=== PATIENT | male | born 1965 | race African-American/Black ===

== ENCOUNTER 2017-06-12 10:55 | Inpatient (IN) | payer OTHER ==
[2017-06-12 11:37] VITALS: BMI 30.4
--- NOTE | 2017-06-12 13:59 | HP ---
Admission [facility] Chief Complaint: I AM HERE FOR REHAB FROM HEROIN Allergies/Adverse Reactions: Allergies Allergy/AdvReac Type Severity Reaction Status Date / Time No Known Allergies Allergy Verified 06/12/17 13:51 History of Present Illness: THIS 51 YEARS OLD MALE WITH HEROIN DEPENDENCE,SEEKING RE[facility],LAST TREATMENT [facility] 02/16,SUICASA 4 MONTHS AGO, METHADONE MAINTENANCE 120 MGS/DAY,LAST MEDICATE 06/04/17 TYPE 2 DM HYPERTENSION DEPRESSION NICOTINE DEPENDENCE LONGEST PERIOD OF SOBRIETY 14 YEARS Exam Limitations: No Limitations - Ebola screening Have you traveled outside of the country in the last 21 days: No (N) Have you had contact with anyone from an Ebola affected area: No Have you been sick,other than usual withdrawal symptoms: No Do you have a fever: No - Review of Systems Constitutional: No Symptoms Reported EENT: reports: No Symptoms Reported Respiratory: reports: No Symptoms reported Cardiac: reports: No Symptoms Reported GI: reports: No Symptoms Reported : reports: No Symptoms Reported Musculoskeletal: reports: No Symptoms Reported (FX OF RIGHT WRIST AND TENDON INJURY RIGHT HAND 2 AND A HALF WEEKS AGO) Integumentary: reports: No Symptoms Reported Neuro: reports: No Symptoms reported Endocrine: reports: No Symptoms Reported Hematology: reports: No Symptoms Reported Psychiatric: reports: No Sypmtoms Reported, Judgement Intact, Mood/Affect Appropiate, Anxious, Depressed Patient History - Patient Medical History Hx Anemia: No Hx Asthma: No Hx Chronic Obstructive Pulmonary Disease (COPD): No Hx Cancer: No Hx Cardiac Disorders: No Hx Congestive Heart Failure: No Hx Hypertension: Yes (ON MED) Hx Hypercholesterolemia: No Hx Pacemaker: No HX Cerebrovascular Accident: No Hx Seizures: No Hx Dementia: No Hx Diabetes: Yes (TYPE 2 DM) Hx Gastrointestinal Disorders: No Hx Liver Disease: No Hx Genitourinary Disorders: No Hx Sexually Transmitted Disorders: No Hx Renal Disease (ESRD): No Hx Thyroid Disease: No Hx Human Immunodeficiency Virus (HIV): No (LAST 01/17 NEGATIVE) Hx Hepatitis C: No Hx Depression: Yes (ANXIETY) Hx Suicide Attempt: No Hx Bipolar Disorder: No Hx Schizophrenia: No Other Medical History: NO SUICIDAL,NO HOMICIDAL - Patient Surgical History Past Surgical History: No - PPD History Previous Implant?: Yes Documented Results: Negative w/o proof PPD to be Administered?: Yes - Smoking Cessation Smoking history: Current every day smoker Have you smoked in the past 12 months: Yes Aproximately how many cigarettes per day: 20 Cigars Per Day: 0 Hx Chewing Tobacco Use: No Initiated information on smoking cessation: Yes 'Breaking Loose' booklet given: 06/12/17 - Substance & Tx. History Hx Alcohol Use: No Hx Substance Use: Yes Substance Use Type: Heroin Hx Substance Use Treatment: Yes ([facility] IN 02/16) - Substances Abused Heroin Route: Inhalation Frequency: Daily Amount used: 6 bags Age of first use: 26 Date of Last Use: 06/12/17 Family Disease History - Family Disease History Family History: Denies Admission Physical Exam [facility] - Vital Signs Vital Signs: Vital Signs - 24 hr 06/12/17 11:36 Temperature 96.2 F L Pulse Rate 81 Respiratory 18 Rate Blood Pressure 145/93 - Physical General Appearance: Yes: Within Normal Limits HEENTM: Yes: Within Normal Limits, Normal ENT Inspection, KAREN, Pharynx Normal Respiratory: Yes: Lungs Clear, Normal Breath Sounds, No Respiratory Distress Neck: Yes: Within Normal Limits Breast: Yes: Within Normal Limits Cardiology: Yes: Within Normal Limits, Regular Rhythm, Regular Rate, S1, S2 Abdominal: Yes: Within Normal Limits, Normal Bowel Sounds, Non Tender, Soft Genitourinary: Yes: Within Normal Limits Back: Yes: Within Normal Limits Musculoskeletal: Yes: Muscle Pain Extremities: Yes: Other (FX OF RIGHT WRIST AND SPRAIN OF TENDON OF RIGHT 5TH FINGER) Neurological: Yes: 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 NML intact, Fully Oriented, Alert, Motor Strength 5/5, Normal Mood/Affect Integumentary: Yes: Within Normal Limits Lymphatic: Yes: Within Normal Limits - Diagnostic (1) Heroin dependence Current Visit: Yes Status: Acute (2) Methadone maintenance therapy patient Current Visit: Yes Status: Acute (3) Essential hypertension Current Visit: Yes Status: Acute (4) DM2 (diabetes mellitus, type 2) Current Visit: Yes Status: Acute (5) Anxiety and depression Current Visit: Yes Status: Acute Cleared for Admission [facility] - Detox or Rehab Claeared for Rehab Admission: Yes [facility] Breath Alcohol Content Breath Alcohol Content: 0 Urine Drug Screen - Results Drug Screen Negative: No Urine Drug Screen Results: ANTON-Cocaine, OPI-Opiates, PCP-Phencyclidine, MTD- Methadone Inpatient Rehab Admission - Initial Determination Are CD services needed?: Yes Free of communicable disease: Yes Not in need of hospitalization: Yes - Rehab Admission Criteria Previous failed treatment: Yes Poor recovery environment: Yes Comorbidities: Yes Patient is meeting Inpatient Rehab admission criteria:: Yes
[2017-06-12] MEDS ORDERED: MAGNESIUM CITRATE 300 ML BOTTLE PO PRN (14:17)
[2017-06-12] MEDS ORDERED: LOPERAMIDE HCL 2 MG CAPSULE PO PRN (14:17)
[2017-06-12] MEDS ORDERED: IBUPROFEN 400 MG TABLET (FP) PO PRN (14:17)
[2017-06-12] MEDS ORDERED: MENTHOL/PHENOL 1 EACH UD MM PRN (14:17)
[2017-06-12] MEDS ORDERED: guaiFENesin/D-METHORPHAN HB 10 ML UNIT-DOSE CUPS PO PRN (14:17)
[2017-06-12] MEDS ORDERED: MAG HYDROX/AL HYDROX/SIMETH 30 ML UNIT-DOSE CUP PO PRN (14:17)
[2017-06-12] MEDS ORDERED: ACETAMINOPHEN 325 MG TABLET (FP) PO PRN (14:17)
[2017-06-12] MEDS ORDERED: hydrOXYzine PAMOATE 50 MG CAPSULE (FP) PO PRN (14:17)
[2017-06-12] MEDS ORDERED: MAGNESIUM HYDROX 2400MG/30ML ORAL SUSPENSION 30 ML CUP PO PRN (14:17)
[2017-06-12] MEDS ORDERED: METHADONE HCL 40 MG DISPERSABLE TABLET PO ONE ×2 (14:36→17:45)
[2017-06-12] MEDS: metFORMIN HCL 500 MG TABLET (FP) PO SCH (17:14)
[2017-06-12] MEDS: LISINOPRIL 10 MG TABLET (FP) PO SCH (17:14)
[2017-06-12] MEDS: NICOTINE 21 MG/24 HOURS TOPICAL PATCH TD SCH (17:15)
[2017-06-12 19:09] LABS: MCH 30.2 pg (25.7-33.7); MCHC 34.5 g/dl (32.0-35.9); MEAN CELL VOLUME 87.7 fl (80-96); PLATELET COUNT 265 K/MM3 (134-434); RDW 12.9 % (11.9-15.9); WHITE BLOOD COUNT 9.2 K/mm3 (4.0-10.0)
[2017-06-12 19:52] LABS: URINE APPEARANCE SLCLOUDY; URINE BILIRUBIN NEGATIVE (NEGATIVE); URINE BLOOD NEGATIVE (NEGATIVE); URINE COLOR YELLOW; URINE GLUCOSE (UA) 3+ (NEGATIVE); URINE KETONE NEGATIVE (NEGATIVE); URINE NITRITE NEGATIVE (NEGATIVE); URINE PROTEIN NEGATIVE (NEGATIVE); URINE UROBILINOGEN NEGATIVE mg/dL (0.2-1.0)
[2017-06-12 20:29] LABS: ALBUMIN 3.4 g/dl (3.4-5.0); ANION GAP 8 (8-16); CALCIUM 8.7 mg/dL (8.5-10.1); CO2 24 mmol/L (21-32); GLUCOSE,RANDOM 248 mg/dL (74-106); SGPT/ALT 18 U/L (12-78)
[2017-06-12 20:32] LABS: ALK PHOS 124 U/L (45-117); BILIRUBIN,TOTAL 0.3 mg/dL (0.2-1.0); CREATININE 1.1 mg/dL (0.7-1.3); SGOT/AST 9 U/L (15-37); TOT PROT 6.6 g/dl (6.4-8.2)
[2017-06-12 21:38] LABS: URINE LEUK ESTERASE Negative (NEGATIVE)
[2017-06-12] MEDS: THIAMINE HCL 100 MG TABLET (FP) PO SCH (21:46)
--- NOTE | 2017-06-12 23:47 | PN ---
[facility] Progress Note Note: received nurse call that the patient need ppd
[2017-06-13] MEDS ORDERED: METHADONE HCL 10 MG TABLET PO ONE (06:00)
[2017-06-13] MEDS ORDERED: METHADONE 40 MG, METHADONE 10 MG PO ONE (06:00)
[2017-06-13] MEDS ORDERED: METHADONE HCL 10 MG TABLET ONE (06:18)
[2017-06-13] MEDS ORDERED: METHADONE HCL 40 MG DISPERSABLE TABLET ONE (06:18)
[2017-06-13] MEDS: metFORMIN HCL 500 MG TABLET (FP) PO SCH ×2 (06:41→16:59)
[2017-06-13] MEDS ORDERED: TUBERCULIN PPD 5 TU/0.1ML VIAL ID ONE (06:43)
[2017-06-13] MEDS: PRENATAL VITAMINS W/ FOLIC ACID TABLET (FP) PO SCH (10:15)
[2017-06-13] MEDS: LISINOPRIL 10 MG TABLET (FP) PO SCH (10:15)
[2017-06-13] MEDS: NICOTINE 21 MG/24 HOURS TOPICAL PATCH TD SCH (10:29)
[2017-06-13] MEDS ORDERED: FLU VACCINE QUAD 60 MCG/0.5 ML (MDV 17-18) IM ONE (12:00)
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
[2017-06-13] MEDS: THIAMINE HCL 100 MG TABLET (FP) PO SCH (21:31)
[2017-06-13] MEDS: P-EPHED 60MG/TRIPROLIDI 2.5MG TABLET PO PRN (21:32)
[2017-06-14] MEDS ORDERED: METHADONE 40 MG, METHADONE 20 MG PO ONE (06:00)
[2017-06-14] MEDS ORDERED: METHADONE HCL 10 MG TABLET PO SCH (06:00)
[2017-06-14] MEDS ORDERED: METHADONE HCL 10 MG TABLET PO ONE (06:00)
[2017-06-14] MEDS ORDERED: METHADONE HCL 10 MG TABLET ONE (06:14)
[2017-06-14] MEDS ORDERED: METHADONE HCL 40 MG DISPERSABLE TABLET ONE (06:15)
[2017-06-14] MEDS: metFORMIN HCL 500 MG TABLET (FP) PO SCH ×2 (06:36→16:35)
[2017-06-14] MEDS ORDERED: PT OWN MED DRAWER 7, Y5N ONE (08:58)
[2017-06-14] MEDS: LISINOPRIL 10 MG TABLET (FP) PO SCH (10:09)
[2017-06-14] MEDS: PRENATAL VITAMINS W/ FOLIC ACID TABLET (FP) PO SCH (10:09)
[2017-06-14] MEDS: buPROPion HCL 75 MG TABLET PO SCH (10:09)
[2017-06-14] MEDS: NICOTINE 21 MG/24 HOURS TOPICAL PATCH TD SCH (10:09)
--- NOTE | 2017-06-14 15:41 | EKG ---
Test Reason : Blood Pressure : / mmHG Vent. Rate : 070 BPM Atrial Rate : 070 BPM P-R Int : 136 ms QRS Dur : 076 ms QT Int : 404 ms P-R-T Axes : 063 -42 011 degrees QTc Int : 436 ms NORMAL SINUS RHYTHM LEFT AXIS DEVIATION ABNORMAL ECG NO PREVIOUS ECGS AVAILABLE REPEAT EKG IF CLINICALLY INDICATED Confirmed by REBECCA HEARN MD ([id number]) on 06/14/2017 3:41:14 PM Referred By: DILCIA OSWALD Confirmed By:REBECCA HEARN MD
[2017-06-14] MEDS: THIAMINE HCL 100 MG TABLET (FP) PO SCH (21:42)
[2017-06-15] MEDS ORDERED: METHADONE HCL 10 MG TABLET ONE (05:40)
[2017-06-15] MEDS ORDERED: METHADONE HCL 40 MG DISPERSABLE TABLET ONE (05:40)
[2017-06-15] MEDS ORDERED: METHADONE 40 MG, METHADONE 30 MG PO ONE (06:00)
[2017-06-15] MEDS ORDERED: METHADONE HCL 10 MG TABLET PO ONE (06:00)
[2017-06-15] MEDS: metFORMIN HCL 500 MG TABLET (FP) PO SCH ×2 (06:08→16:41)
[2017-06-15] MEDS: PRENATAL VITAMINS W/ FOLIC ACID TABLET (FP) PO SCH (09:51)
[2017-06-15] MEDS: buPROPion HCL 75 MG TABLET PO SCH (09:52)
[2017-06-15] MEDS: NICOTINE 21 MG/24 HOURS TOPICAL PATCH TD SCH (09:52)
[2017-06-15] MEDS: LISINOPRIL 10 MG TABLET (FP) PO SCH (09:52)
[2017-06-15] MEDS: NICOTINE POLACRILEX 4 MG GUM BUC PRN (09:54)
[2017-06-15] MEDS: THIAMINE HCL 100 MG TABLET (FP) PO SCH (21:38)
[2017-06-16] MEDS ORDERED: METHADONE HCL 40 MG DISPERSABLE TABLET PO ONE (06:00)
[2017-06-16] MEDS: metFORMIN HCL 500 MG TABLET (FP) PO SCH ×2 (06:12→16:46)
[2017-06-16] MEDS: buPROPion HCL 75 MG TABLET PO SCH (10:02)
[2017-06-16] MEDS: LISINOPRIL 10 MG TABLET (FP) PO SCH (10:02)
[2017-06-16] MEDS: PRENATAL VITAMINS W/ FOLIC ACID TABLET (FP) PO SCH (10:02)
[2017-06-16] MEDS: NICOTINE 21 MG/24 HOURS TOPICAL PATCH TD SCH (10:02)
[2017-06-16] MEDS: NICOTINE POLACRILEX 4 MG GUM BUC PRN (10:03)
[2017-06-16] MEDS: THIAMINE HCL 100 MG TABLET (FP) PO SCH (21:21)
[2017-06-17] MEDS ORDERED: METHADONE 80 MG, METHADONE 10 MG PO SCH (06:00)
[2017-06-17] MEDS ORDERED: METHADONE HCL 10 MG TABLET PO ONE (06:00)
[2017-06-17] MEDS ORDERED: METHADONE HCL 10 MG TABLET ONE (06:04)
[2017-06-17] MEDS ORDERED: METHADONE HCL 40 MG DISPERSABLE TABLET ONE (06:04)
[2017-06-17] MEDS: metFORMIN HCL 500 MG TABLET (FP) PO SCH ×2 (06:07→16:49)
[2017-06-17] MEDS: PRENATAL VITAMINS W/ FOLIC ACID TABLET (FP) PO SCH (10:06)
[2017-06-17] MEDS: buPROPion HCL 75 MG TABLET PO SCH (10:07)
[2017-06-17] MEDS: LISINOPRIL 10 MG TABLET (FP) PO SCH (10:07)
[2017-06-17] MEDS: NICOTINE 21 MG/24 HOURS TOPICAL PATCH TD SCH (10:07)
[2017-06-17] MEDS: NICOTINE POLACRILEX 4 MG GUM BUC PRN (10:09)
--- NOTE | 2017-06-17 15:09 | PN ---
[facility] Progress Note (SOAP) Subjective: requesting to stayt on methadone 100mg daily, does ot want to increase dose, c/ o low sex drive Objective: 06/17/17 15:07 Vital Signs - 8 hr 06/17/17 06/17/17 07:43 10:00 Temperature 97.0 F L Pulse Rate 67 71 Respiratory 18 Rate Blood Pressure 144/70 133/72 Laboratory Tests 06/12/17 06/12/17 06/12/17 13:58 14:00 14:00 WBC 9.2 RBC 3.59 L Hgb 10.9 L Hct 31.5 L MCV 87.7 MCH 30.2 MCHC 34.5 RDW 12.9 Plt Count 265 MPV 9.0 Sodium 140 Potassium 4.0 Chloride 108 H Carbon Dioxide 24 Anion Gap 8 BUN 19 H Creatinine 1.1 Creat Clearance w eGFR > 60 POC Glucometer 261 Random Glucose 248 H Calcium 8.7 Total Bilirubin 0.3 AST 9 L ALT 18 Alkaline Phosphatase 124 H Total Protein 6.6 Albumin 3.4 Urine Color Urine Appearance Urine pH Ur Specific [place] Urine Protein Urine Glucose (UA) Urine Ketones Urine Blood Urine Nitrite Urine Bilirubin Urine Urobilinogen Ur Leukocyte Esterase RPR Titer 06/12/17 06/12/17 06/12/17 14:00 17:09 19:00 WBC RBC Hgb Hct MCV MCH MCHC RDW Plt Count MPV Sodium Potassium Chloride Carbon Dioxide Anion Gap BUN Creatinine Creat Clearance w eGFR POC Glucometer 191 Random Glucose Calcium Total Bilirubin AST ALT Alkaline Phosphatase Total Protein Albumin Urine Color Yellow Urine Appearance Slcloudy Urine pH 5.0 Ur Specific [place] 1.023 Urine Protein Negative Urine Glucose (UA) 3+ H Urine Ketones Negative Urine Blood Negative Urine Nitrite Negative Urine Bilirubin Negative Urine Urobilinogen Negative Ur Leukocyte Esterase Negative RPR Titer Nonreactive 06/13/17 06/13/17 06/14/17 06:40 16:59 06:35 WBC RBC Hgb Hct MCV MCH MCHC RDW Plt Count MPV Sodium Potassium Chloride Carbon Dioxide Anion Gap BUN Creatinine Creat Clearance w eGFR POC Glucometer 165 129 168 Random Glucose Calcium Total Bilirubin AST ALT Alkaline Phosphatase Total Protein Albumin Urine Color Urine Appearance Urine pH Ur Specific [place] Urine Protein Urine Glucose (UA) Urine Ketones Urine Blood Urine Nitrite Urine Bilirubin Urine Urobilinogen Ur Leukocyte Esterase RPR Titer 06/14/17 06/15/17 06/15/17 16:34 06:09 16:41 WBC RBC Hgb Hct MCV MCH MCHC RDW Plt Count MPV Sodium Potassium Chloride Carbon Dioxide Anion Gap BUN Creatinine Creat Clearance w eGFR POC Glucometer 217 180 225 Random Glucose Calcium Total Bilirubin AST ALT Alkaline Phosphatase Total Protein Albumin Urine Color Urine Appearance Urine pH Ur Specific [place] Urine Protein Urine Glucose (UA) Urine Ketones Urine Blood Urine Nitrite Urine Bilirubin Urine Urobilinogen Ur Leukocyte Esterase RPR Titer 06/16/17 06/16/17 06/17/17 06:10 16:45 06:06 WBC RBC Hgb Hct MCV MCH MCHC RDW Plt Count MPV Sodium Potassium Chloride Carbon Dioxide Anion Gap BUN Creatinine Creat Clearance w eGFR POC Glucometer 174 192 153 Random Glucose Calcium Total Bilirubin AST ALT Alkaline Phosphatase Total Protein Albumin Urine Color Urine Appearance Urine pH Ur Specific [place] Urine Protein Urine Glucose (UA) Urine Ketones Urine Blood Urine Nitrite Urine Bilirubin Urine Urobilinogen Ur Leukocyte Esterase RPR Titer hyperglycemia Assessment: 06/17/17 15:[address], adequate methadone dose Plan: reviewed medication , only methadone but patient reports has not affected sex drive in past, anemia noted, MVI ordered, follow up with PCP when discharged or psychaitrist in rehab. d/c dose escalation at patient request.
[2017-06-17] MEDS: THIAMINE HCL 100 MG TABLET (FP) PO SCH (21:17)
[2017-06-18] MEDS ORDERED: METHADONE HCL 10 MG TABLET PO SCH (06:00)
[2017-06-18] MEDS ORDERED: METHADONE 80 MG, METHADONE 20 MG PO ONE (06:00)
[2017-06-18] MEDS ORDERED: METHADONE HCL 10 MG TABLET PO ONE (06:00)
[2017-06-18] MEDS ORDERED: METHADONE HCL 40 MG DISPERSABLE TABLET ONE (06:02)
[2017-06-18] MEDS ORDERED: METHADONE HCL 10 MG TABLET ONE (06:02)
[2017-06-18] MEDS: metFORMIN HCL 500 MG TABLET (FP) PO SCH ×2 (06:22→16:42)
[2017-06-18] MEDS: METHADONE 80 MG, METHADONE 20 MG PO SCH (06:22)
[2017-06-18] MEDS: P-EPHED 60MG/TRIPROLIDI 2.5MG TABLET PO PRN (08:46)
[2017-06-18] MEDS: buPROPion HCL 75 MG TABLET PO SCH (10:15)
[2017-06-18] MEDS: PRENATAL VITAMINS W/ FOLIC ACID TABLET (FP) PO SCH (10:15)
[2017-06-18] MEDS: NICOTINE 21 MG/24 HOURS TOPICAL PATCH TD SCH (10:15)
[2017-06-18] MEDS: LISINOPRIL 10 MG TABLET (FP) PO SCH (10:15)
[2017-06-18] MEDS: NICOTINE POLACRILEX 4 MG GUM BUC PRN (10:17)
--- NOTE | 2017-06-18 13:40 | PN ---
Psychiatric Progress Note Vital Signs: Vital Signs Period Temp Pulse Resp BP Sys/Gibbs Pulse Ox Last 24 Hr 97.9 F 61 18-20 119/74 Date of Session: 06/18/17 Chief Complaint:: progress update HPI: patient is addressing opioid, nicotine dependence comoerbid substance induced mood siorder. ROS: WNL Current Medications: Active Medications Generic Name Dose Route Start Last Admin Trade Name Freq PRN Reason Stop Dose Admin Acetaminophen 650 mg 06/12/17 14:17 Tylenol - PO Q4H PRN PAIN Al Hydroxide/Mg Hydroxide 30 ml 06/12/17 14:17 Mylanta Oral Suspension - PO Q6H PRN DYSPEPSIA Bupropion HCl 150 mg 06/18/17 13:22 Wellbutrin - PO DAILY [facility] Escitalopram Oxalate 10 mg 06/19/17 10:00 Lexapro - PO DAILY [facility] Eucalyptus/Menthol/Phenol/Sorbitol 1 each 06/12/17 14:17 Cepastat Lozenge - MM Q4H PRN SORE THROAT Guaifenesin 10 ml 06/12/17 14:17 Robitussin Dm - PO Q6H PRN COUGH Hydroxyzine Pamoate 50 mg 06/12/17 14:17 06/12/17 21:47 Vistaril - PO 50 mg Q4H PRN Administration AGITATION Ibuprofen 400 mg 06/12/17 14:17 Motrin - PO Q6H PRN SEVERE PAIN Lisinopril 10 mg 06/12/17 14:30 06/18/17 10:15 Prinivil PO 10 mg DAILY CARLITOS Administration Loperamide HCl 4 mg 06/12/17 14:17 Imodium - PO Q6H PRN DIARRHEA Magnesium Citrate 300 ml 06/12/17 14:17 06/16/17 08:44 Citroma - PO 300 ml Q48H PRN Administration CONSTIPATION Magnesium Hydroxide 30 ml 06/12/17 14:17 Milk Of Magnesia - PO DAILY PRN CONSTIPATION Metformin HCl 1,000 mg 06/12/17 16:30 06/18/17 06:22 Glucophage - PO 1,000 mg BID@0700,1630 CARLITOS Administration Methadone HCl 80 mg/ Methadone 100 mg 06/18/17 06:00 06/18/17 06:22 HCl 20 mg PO 100 mg DAILY@0600 CARLITOS Administration Nicotine 21 mg 06/12/17 14:30 06/18/17 10:15 Nicoderm Patch - TD Not Given DAILY CARLITOS Nicotine Polacrilex 4 mg 06/14/17 11:32 06/18/17 10:17 Nicorette Gum - BUC 4 mg Q2H PRN Administration NICOTINE REPLACEMENT RX Multivit/Folic Acid/Iron 1 tab 06/13/17 10:00 06/18/17 10:15 Vitamins (Sjr) - PO 1 tab DAILY CARLITOS Administration Pseudoephedrine/Triprolidine 1 combo 06/12/17 14:17 06/18/17 08:46 Actifed - PO 1 combo TID PRN Administration NASAL CONGESTION Thiamine HCl 100 mg 06/12/17 22:00 06/17/17 21:17 Vitamin B1 - PO Not Given HS CARLITOS Current Side Effect: No Lab tests ordered: No Lab tests reviewed: Yes Provider note:: Reviewed the chart, admission note appreciated, met with the patient today. Patient reports has been feeling depressed and stated he wants to continue his antidepressants, reports was on lexapro 10 mg and wellbutrin 300 mg , he was non-compliant with medications and states stopped about 4 months ago, after evaluation started wellbutrin 75 mg, reviewed medications with the patient, discussed treatment plan, patient agreed , will increase wellbutrin 150 mg daily, add lexapro 10 mg, psycheducation and supportive therapy provided, continue to monitor progress. Total face to face time:: 35 Mental Status Exam - Mental Status Exam Alert and Oriented to: Time, Place, Person Cognitive Function: Good Patient Appearance: Well Groomed Mood: Sad Affect: Mood Congruent Patient Behavior: Appropriate, Cooperative Speech Pattern: Clear, Appropriate Voice Loudness: Normal Thought Process: Intact, Goal Oriented Thought Disorder: Not Present Hallucinations: Denies Suicidal Ideation: Denies Homicidal Ideation: Denies Insight/Judgement: Fair Sleep: Fair Appetite: Fair Muscle strength/Tone: Normal Gait/Station: Normal Psychiatric Treatment Plan - Problem List (1) Heroin dependence Current Visit: Yes (2) Methadone maintenance therapy patient Current Visit: Yes (3) Nicotine dependence Current Visit: Yes (4) Opioid dependence on agonist therapy Current Visit: Yes
[2017-06-18] MEDS: THIAMINE HCL 100 MG TABLET (FP) PO SCH (21:23)
[2017-06-19] MEDS ORDERED: METHADONE HCL 10 MG TABLET ONE (03:11)
[2017-06-19] MEDS ORDERED: METHADONE HCL 40 MG DISPERSABLE TABLET ONE (03:11)
[2017-06-19] MEDS ORDERED: METHADONE HCL 10 MG TABLET PO ONE (06:00)
[2017-06-19] MEDS ORDERED: METHADONE 80 MG, METHADONE 30 MG PO ONE (06:00)
[2017-06-19] MEDS: METHADONE 80 MG, METHADONE 20 MG PO SCH (06:24)
[2017-06-19] MEDS: metFORMIN HCL 500 MG TABLET (FP) PO SCH ×2 (06:25→16:42)
[2017-06-19] MEDS: PRENATAL VITAMINS W/ FOLIC ACID TABLET (FP) PO SCH (10:02)
[2017-06-19] MEDS: ESCITALOPRAM OXALATE 10 MG TABLET (FP) PO SCH (10:02)
[2017-06-19] MEDS: LISINOPRIL 10 MG TABLET (FP) PO SCH (10:02)
[2017-06-19] MEDS: buPROPion HCL 75 MG TABLET PO SCH (10:03)
[2017-06-19] MEDS: NICOTINE 21 MG/24 HOURS TOPICAL PATCH TD SCH (10:03)
[2017-06-19] MEDS: NICOTINE POLACRILEX 4 MG GUM BUC PRN (10:04)
[2017-06-19] MEDS: TOLNAFTATE 1% CREAM 15 GM TUBE TP SCH (21:25)
[2017-06-19] MEDS: THIAMINE HCL 100 MG TABLET (FP) PO SCH (21:25)
[2017-06-20] MEDS ORDERED: METHADONE HCL 10 MG TABLET ONE (03:42)
[2017-06-20] MEDS ORDERED: METHADONE HCL 40 MG DISPERSABLE TABLET ONE (03:42)
[2017-06-20] MEDS ORDERED: METHADONE HCL 5 MG TABLET (FOR DETOX USE ONLY) PO SCH (06:00)
[2017-06-20] MEDS ORDERED: METHADONE HCL 40 MG DISPERSABLE TABLET PO ONE (06:00)
[2017-06-20] MEDS: METHADONE 80 MG, METHADONE 20 MG PO SCH (06:14)
[2017-06-20] MEDS: metFORMIN HCL 500 MG TABLET (FP) PO SCH ×2 (06:14→16:39)
[2017-06-20] MEDS: LISINOPRIL 10 MG TABLET (FP) PO SCH (09:59)
[2017-06-20] MEDS: ESCITALOPRAM OXALATE 10 MG TABLET (FP) PO SCH (09:59)
[2017-06-20] MEDS: PRENATAL VITAMINS W/ FOLIC ACID TABLET (FP) PO SCH (09:59)
[2017-06-20] MEDS: TOLNAFTATE 1% CREAM 15 GM TUBE TP SCH ×2 (10:00→21:22)
[2017-06-20] MEDS: NICOTINE 21 MG/24 HOURS TOPICAL PATCH TD SCH (10:00)
[2017-06-20] MEDS: buPROPion HCL 75 MG TABLET PO SCH (10:00)
[2017-06-20] MEDS: P-EPHED 60MG/TRIPROLIDI 2.5MG TABLET PO PRN (10:01)
[2017-06-20] MEDS: THIAMINE HCL 100 MG TABLET (FP) PO SCH (21:21)
[2017-06-21] MEDS ORDERED: METHADONE HCL 40 MG DISPERSABLE TABLET ONE (03:39)
[2017-06-21] MEDS ORDERED: METHADONE HCL 10 MG TABLET ONE (03:39)
[2017-06-21] MEDS: METHADONE 80 MG, METHADONE 20 MG PO SCH (06:12)
[2017-06-21] MEDS: metFORMIN HCL 500 MG TABLET (FP) PO SCH ×2 (06:12→16:37)
[2017-06-21] MEDS: PRENATAL VITAMINS W/ FOLIC ACID TABLET (FP) PO SCH (09:58)
[2017-06-21] MEDS: buPROPion HCL 75 MG TABLET PO SCH (09:59)
[2017-06-21] MEDS: NICOTINE 21 MG/24 HOURS TOPICAL PATCH TD SCH (09:59)
[2017-06-21] MEDS: ESCITALOPRAM OXALATE 10 MG TABLET (FP) PO SCH (09:59)
[2017-06-21] MEDS: TOLNAFTATE 1% CREAM 15 GM TUBE TP SCH ×2 (10:00→21:34)
[2017-06-21] MEDS: LISINOPRIL 10 MG TABLET (FP) PO SCH (10:01)
[2017-06-21] MEDS: NICOTINE POLACRILEX 4 MG GUM BUC PRN (10:01)
[2017-06-21] MEDS: THIAMINE HCL 100 MG TABLET (FP) PO SCH (21:32)
[2017-06-22] MEDS ORDERED: METHADONE HCL 40 MG DISPERSABLE TABLET ONE (03:19)
[2017-06-22] MEDS ORDERED: METHADONE HCL 10 MG TABLET ONE (03:19)
[2017-06-22] MEDS: metFORMIN HCL 500 MG TABLET (FP) PO SCH ×2 (06:11→16:37)
[2017-06-22] MEDS: METHADONE 80 MG, METHADONE 20 MG PO SCH (06:11)
[2017-06-22 07:09] VITALS: TEMP 98.1
[2017-06-22] MEDS: NICOTINE 21 MG/24 HOURS TOPICAL PATCH TD SCH (10:34)
[2017-06-22] MEDS: PRENATAL VITAMINS W/ FOLIC ACID TABLET (FP) PO SCH (10:34)
[2017-06-22] MEDS: ESCITALOPRAM OXALATE 10 MG TABLET (FP) PO SCH (10:34)
[2017-06-22] MEDS: LISINOPRIL 10 MG TABLET (FP) PO SCH (10:34)
[2017-06-22] MEDS: buPROPion HCL 75 MG TABLET PO SCH (10:35)
[2017-06-22] MEDS: TOLNAFTATE 1% CREAM 15 GM TUBE TP SCH ×2 (10:35→21:38)
[2017-06-22] MEDS: THIAMINE HCL 100 MG TABLET (FP) PO SCH (21:37)
[2017-06-23] MEDS ORDERED: METHADONE HCL 10 MG TABLET ONE (03:14)
[2017-06-23] MEDS ORDERED: METHADONE HCL 40 MG DISPERSABLE TABLET ONE (03:15)
[2017-06-23] MEDS: METHADONE 80 MG, METHADONE 20 MG PO SCH (06:27)
[2017-06-23] MEDS: metFORMIN HCL 500 MG TABLET (FP) PO SCH (06:28)
[2017-06-23 06:51] VITALS: BP 140/73; PULSE 84
[2017-06-23] MEDS: NICOTINE 21 MG/24 HOURS TOPICAL PATCH TD SCH (09:36)
[2017-06-23] MEDS: TOLNAFTATE 1% CREAM 15 GM TUBE TP SCH (09:37)
[2017-06-23] MEDS: ESCITALOPRAM OXALATE 10 MG TABLET (FP) PO SCH (09:37)
[2017-06-23] MEDS: PRENATAL VITAMINS W/ FOLIC ACID TABLET (FP) PO SCH (09:37)
[2017-06-23] MEDS: buPROPion HCL 75 MG TABLET PO SCH (09:37)
[2017-06-23] MEDS: LISINOPRIL 10 MG TABLET (FP) PO SCH (09:37)
--- NOTE | 2017-06-23 09:47 | PN ---
Psychiatric Progress Note Vital Signs: Vital Signs Period Temp Pulse Resp BP Sys/Gibbs Pulse Ox Last 24 Hr 66-84 16-81 131-140/71-73 Date of Session: 06/23/17 Chief Complaint:: discharge visit HPI: Patient has addressed opioid, nicotine dependence, PCP and cocaine abuse comorbid substance induced mood disorder. ROS: HTN, DM medically managed. Current Medications: Active Medications Generic Name Dose Route Start Last Admin Trade Name Freq PRN Reason Stop Dose Admin Acetaminophen 650 mg 06/12/17 14:17 06/19/17 08:05 Tylenol - PO 650 mg Q4H PRN Administration PAIN Al Hydroxide/Mg Hydroxide 30 ml 06/12/17 14:17 Mylanta Oral Suspension - PO Q6H PRN DYSPEPSIA Bupropion HCl 150 mg 06/19/17 10:00 06/23/17 09:37 Wellbutrin - PO 150 mg DAILY CARLITOS Administration Escitalopram Oxalate 10 mg 06/19/17 10:00 06/23/17 09:37 Lexapro - PO 10 mg DAILY CARLITOS Administration Eucalyptus/Menthol/Phenol/Sorbitol 1 each 06/12/17 14:17 Cepastat Lozenge - MM Q4H PRN SORE THROAT Guaifenesin 10 ml 06/12/17 14:17 06/18/17 21:23 Robitussin Dm - PO 10 ml Q6H PRN Administration COUGH Hydroxyzine Pamoate 50 mg 06/12/17 14:17 06/12/17 21:47 Vistaril - PO 50 mg Q4H PRN Administration AGITATION Ibuprofen 400 mg 06/12/17 14:17 Motrin - PO Q6H PRN SEVERE PAIN Lisinopril 10 mg 06/12/17 14:30 06/23/17 09:37 Prinivil PO 10 mg DAILY CARLITOS Administration Loperamide HCl 4 mg 06/12/17 14:17 Imodium - PO Q6H PRN DIARRHEA Magnesium Citrate 300 ml 06/12/17 14:17 06/16/17 08:44 Citroma - PO 300 ml Q48H PRN Administration CONSTIPATION Magnesium Hydroxide 30 ml 06/12/17 14:17 06/22/17 21:39 Milk Of Magnesia - PO 30 ml DAILY PRN Administration CONSTIPATION Metformin HCl 1,000 mg 06/12/17 16:30 11/21/17 06:28 Glucophage - PO 1,000 mg BID@0700,1630 CARLITOS Administration Methadone HCl 80 mg/ Methadone 100 mg 06/18/17 06:00 06/23/17 06:27 HCl 20 mg PO 100 mg DAILY@0600 CARLITOS Administration Nicotine 21 mg 06/12/17 14:30 06/23/17 09:36 Nicoderm Patch - TD Not Given DAILY CARLITOS Nicotine Polacrilex 4 mg 06/14/17 11:32 06/21/17 10:01 Nicorette Gum - BUC 4 mg Q2H PRN Administration NICOTINE REPLACEMENT RX Multivit/Folic Acid/Iron 1 tab 06/13/17 10:00 06/23/17 09:37 Vitamins (Sjr) - PO 1 tab DAILY CARLITOS Administration Pseudoephedrine/Triprolidine 1 combo 06/12/17 14:17 06/20/17 10:01 Actifed - PO 1 combo TID PRN Administration NASAL CONGESTION Thiamine HCl 100 mg 06/12/17 22:00 06/22/17 21:37 Vitamin B1 - PO 100 mg HS CARLITOS Administration Tolnaftate 1 applic 06/19/17 22:00 06/23/17 09:37 Tinactin 1% Cream - TP 1 applic BID CARLITOS Administration Current Side Effect: No Lab tests ordered: No Lab tests reviewed: Yes Provider note:: Patient has completed today his treatment and met his goals, will continue to address his issues at [facility] outpatient rehabilitation program. Patient gained insights into importance of changing attitudes/behavior for utilization of supports available to prevent relapses. Medications(Wellbutrin and Lexapro) well tolerated, patient reports he feels much better, his mood improved, he is hopeful, he will f/u by a psychiatrist at [facility] center. Patient wwas encouraged to take medications as directed. Scripts provided for 30 days, patient is stable for discharge today. Total face to face time:: 15 Mental Status Exam - Mental Status Exam Alert and Oriented to: Time, Place, Person Cognitive Function: Good Patient Appearance: Well Groomed Mood: Hopeful Affect: Appropriate, Mood Congruent Patient Behavior: Appropriate, Cooperative Speech Pattern: Clear, Appropriate Voice Loudness: Normal Thought Process: Intact, Goal Oriented Thought Disorder: Not Present Hallucinations: Denies Suicidal Ideation: Denies Homicidal Ideation: Denies Insight/Judgement: Fair Appetite: Fair Muscle strength/Tone: Normal Gait/Station: Normal
== END 2017-06-23 09:50 | disposition home or self-care (01) | DRG 772 ==
LOC: YASAS 10:55 → Y5N 14:08
PROVIDERS: ADMIT Psychiatry & Neurology Psychiatry; ATTEND Psychiatry & Neurology Psychiatry
PROC: HZ42ZZZ Group Counseling for Substance Abuse Treatment, Cognitive-Behavioral (ICD-10-PCS; principal; 2017-06-12)
DX: F10.20 Alcohol dependence, uncomplicated (principal); F17.210 Nicotine dependence, cigarettes, uncomplicated; F19.24 Other psychoactive substance dependence with psychoactive substance-induced mood disorder; F14.10 Cocaine abuse, uncomplicated; F16.10 Hallucinogen abuse, uncomplicated; F41.8 Other specified anxiety disorders; I10 Essential (primary) hypertension; E11.9 Type 2 diabetes mellitus without complications
CPT/HCPCS: 36415; 80053; 81003; 85027; 86593; 90688; 93005; 93010; G0008

== ENCOUNTER 2019-03-26 23:06 | Emergency (ER) | payer OTHER ==
[2019-03-26 23:16] VITALS: BMI 28.5
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
--- NOTE | 2019-03-27 02:13 | PDOC ---
History of Present Illness - General Chief Complaint: Wound Stated Complaint: POSSIBLE BUG BITE LT HAND Time Seen by Provider: 03/27/19 00:36 History Source: Patient Exam Limitations: No Limitations - History of Present Illness Initial Comments: 53 year old male with PMH HTN, DM presented to ED for increasing left hand swelling/redness x1 week, worsening over the last couple of days. Pt reported that he saw he was bitten by a bug x7 days ago, had the [facility] drained at the [facility], then it recurred. Pt reported he has had increasing difficulty flexing his fingers. Pt denied fever, chills, nausea, vomiting, abdominal pain, sweats, numbness, tingling or any other symptoms. PCP: Dr. Hernandez Past History - Past Medical History Allergies/Adverse Reactions: Allergies Allergy/AdvReac Type Severity Reaction Status Date / Time No Known Allergies Allergy Verified 03/27/19 03:56 Home Medications: Ambulatory Orders Lisinopril 10 mg PO DAILY #30 tablet 06/22/17 Metformin HCl [Glucophage] 1,000 mg PO BID #60 tablet 06/22/17 Anemia: No Asthma: No Cancer: No Cardiac Disorders: Yes CVA: No COPD: No CHF: No Dementia: No Diabetes: Yes (NIDDM) GI Disorders: No Disorders: No HTN: Yes Hypercholesterolemia: No Kidney Stones: No Liver Disease: No Seizures: No Thyroid Disease: No - Suicide/Smoking/Psychosocial Hx Smoking History: Never smoked Have you smoked in the past 12 months: Yes Number of Cigarettes Smoked Daily: 20 Cigars Per Day: 0 'Breaking Loose' booklet given: 06/12/17 Hx Alcohol Use: No Drug/Substance Use Hx: No Substance Use Type: Heroin Hx Substance Use Treatment: Yes Review of Systems - Review of Systems Able to Perform ROS?: Yes Comments:: General: denied fever, chills, generalized weakness. HEENT: denied sore throat, rhinorrhea, ear pain. Cardiovascular: denied chest pain, palpitations, syncope, diaphoresis. Respiratory: denied shortness of breath, cough, sputum production, hemoptysis. Gastrointestinal: denied abdominal pain, nausea, vomiting, diarrhea, constipation, blood in stool. Genitourinary: denied dysuria, increased urinary frequency, hematuria, urinary incontinence, flank pain. Back: denied back pain. Musculoskeletal: admitted to hand pain, hand swelling, hand redness. Neurological: denied headache, dizziness, numbness, tingling, weakness. Integumentary: admitted to erythema. denied laceration, abrasion. Hematologic/Lymphatic: denied bruising or bleeding. *Physical Exam - Vital Signs Last Vital Signs Temp Pulse Resp BP Pulse Ox 98.1 F 97 H 20 156/84 95 03/26/19 23:13 03/26/19 23:13 03/26/19 23:13 03/26/19 23:13 03/26/19 23:13 - Physical Exam Comments: Constitutional: Well-nourished, Well-developed, appearing stated age. HEENT: head is normocephalic, atraumatic. EOMI. PERRLA. Neck: supple. Full ROM. Cardiovascular: regular heart rhythm. no murmurs. no pericardial friction rub. Respiratory: clear to auscultation bilaterally. no crackles, rhonchi or wheezing. no stridor. Gastrointestinal: soft, nontender. normal bowel sounds. no rebound, guarding, masses. Extremities: left hand dorsum surface 3x3 cm fluctuant mass with purulent drainage and surrounding erythema 6x6 cm. peripheral pulses intact. no lower extremity edema. pt is unable to flex all of his left hand fingers. no pain to palpation of flexor tendon of all 5 left hand fingers. pain with passive extension and flexion of all five fingers. no sausage fingers. Neurological: CN 2-12 grossly intact. moves all four extremities. Psych: awake, alert, oriented x3. follows commands. answers questions appropriately. ED Treatment Course - LABORATORY CBC & Chemistry Diagram: 03/27/19 02:50 03/27/19 02:50 Medical Decision Making - Medical Decision Making 53 year old male with above PMH presented to ED for left hand swelling/redness x1 week, worsening over the last 2 days. Examination significant for abscess to dorsum of hand with surrounding cellulitis. Hand abscess needs evaluation by Hand Surgery, Dr. Chapman. Will place consult and admit patient for IV antibiotics. Initial Vital Signs Temp Pulse Resp BP Pulse Ox 98.1 F 97 H 20 156/84 95 03/26/19 23:13 03/26/19 23:13 03/26/19 23:13 03/26/19 23:13 03/26/19 23:13 Afebrile. No tachycardia. No tachypnea. Mild hypertension. No hypoxia on room air. Labs ordered: CBC, CMP, blood cultures, coags, T&S Imaging ordered: Hand XR Medications ordered: tylenol 975 mg PO once, normal saline bolus 1000 cc, vancomycin, zosyn EKG performed at 0411: rate 61, regular rhythm, normal axis, normal intervals, no acute ST changes. Bedside US showed a hypodense fluid collection consistent with abscess, with cobblestoning consistent with cellulitis. 03/27/19 04:31 CBC WBC 12.1 K/mm3 (4.0-10.0) H 03/27/19 02:50 RBC 4.67 M/mm3 (4.00-5.60) 03/27/19 02:50 Hgb 14.0 GM/dL (11.7-16.9) 03/27/19 02:50 Hct 41.7 % (35.4-49) D 03/27/19 02:50 MCV 89.4 fl (80-96) 03/27/19 02:50 MCH 30.0 pg (25.7-33.7) 03/27/19 02:50 MCHC 33.6 g/dl (32.0-35.9) 03/27/19 02:50 RDW 13.6 % (11.9-15.9) 03/27/19 02:50 Plt Count 301 K/MM3 (134-434) 03/27/19 02:50 MPV 9.0 fl (7.5-11.1) 03/27/19 02:50 Absolute Neuts (auto) 8.7 K/mm3 (1.5-8.0) H 03/27/19 02:50 Neutrophils % 72.4 % (42.8-82.8) 03/27/19 02:50 Lymphocytes % 16.5 % (8-40) 03/27/19 02:50 Monocytes % 8.7 % (3.8-10.2) 03/27/19 02:50 Eosinophils % 1.4 % (0-4.5) 03/27/19 02:50 Basophils % 1.0 % (0-2.0) 03/27/19 02:50 Nucleated RBC % 0 % (0-0) 03/27/19 02:50 CMP Sodium 140 mmol/L (136-145) 03/27/19 02:50 Potassium 4.4 mmol/L (3.5-5.1) 03/27/19 02:50 Chloride 108 mmol/L (98-107) H 03/27/19 02:50 Carbon Dioxide 22 mmol/L (21-32) 03/27/19 02:50 Anion Gap 10 MMOL/L (8-16) 03/27/19 02:50 BUN 24.5 mg/dL (7-18) H 03/27/19 02:50 Creatinine 1.5 mg/dL (0.55-1.3) H 03/27/19 02:50 Est GFR (CKD-EPI)AfAm 59.88 03/27/19 02:50 Est GFR (CKD-EPI)NonAf 51.67 03/27/19 02:50 Random Glucose 192 mg/dL (74-106) H 03/27/19 02:50 Calcium 9.5 mg/dL (8.5-10.1) 03/27/19 02:50 Total Bilirubin 0.6 mg/dL (0.2-1) 03/27/19 02:50 AST 13 U/L (15-37) L 03/27/19 02:50 ALT 15 U/L (13-61) 03/27/19 02:50 Alkaline Phosphatase 131 U/L (45-117) H 03/27/19 02:50 Total Protein 8.4 g/dl (6.4-8.2) H 03/27/19 02:50 Albumin 4.5 g/dl (3.4-5.0) 03/27/19 02:50 Leukocytosis with left shift. WERNER - IV fluids running Mild ALP elevation XR hand my read - no foreign body. no fracture. no dislocation. CXR my read - sharp costophrenic angles. no infiltrate. -Pending official reports. Pt to be admitted for surgical evaluation of his hand abscess, IV antibiotics for overlying cellulitis. 03/27/19 05:29 Pt to be admitted under Dr. Jackson's service. Dr. Chapman (Hand weight control engineer) paged. 03/27/19 05:[address] Chapman' who stated he is not weight control engineer for Hand. Transfer to [facility] initiated. Inpatient team updated. 03/27/19 06:18 I spoke with Ortho Resident at [facility] - Dr. Fishman - who accepted the patient for transfer. I spoke with ED Attending at [facility] - Dr. Thomas - who accepted the patient for transfer. Pending transfer. Estimated time for arrival of ambulance ~1 hour. *DC/Admit/Observation/Transfer Diagnosis at time of Disposition: Hand abscess, Cellulitis, Leukocytosis - Discharge Dispostion Disposition: TRANSFER ACUTE CARE/OTHER HOSP Condition at time of disposition: Stable Decision to Admit order: Yes - Referrals - Patient Instructions - Post Discharge Activity
[2019-03-27] MEDS ORDERED: PIPERACILLIN/TAZOB 4.5 GM 4.5 GM in DEXTROSE 5%-WATER 100 ML IVPB ONE (02:43)
[2019-03-27] MEDS ORDERED: ACETAMINOPHEN 325 MG TABLET (FP) PO ONE (02:43)
[2019-03-27] MEDS ORDERED: VANCOMYCIN 1,000 MG in DEXTROSE 5%-WATER - 250 ML IVPB ONE (02:43)
[2019-03-27] MEDS ORDERED: SODIUM CHLORIDE 1,000 ML IV STA (02:43)
[2019-03-27] MEDS ORDERED: PIPERACILLIN/TAZOB 4.5 GM 4.5 GM/100 ML BAG IVPB ONE (03:16)
[2019-03-27] MEDS ORDERED: ACETAMINOPHEN 325 MG TABLET (FP) ONE (03:17)
[2019-03-27] MEDS ORDERED: VANCOMYCIN 1 GRAM (PRE-DOCKED) 1,000 MG/250 ML BAG IVPB ONE (03:17)
[2019-03-27 03:40] LABS: INR 1.03 (0.83-1.09); PROTHROMBIN TIME (PATIENT) 12.2 SEC (9.7-13.0)
[2019-03-27 03:43] LABS: ACTIVATED PTT 37.2 SECONDS (25.2-36.5)
[2019-03-27 03:44] LABS: EOS % 1.4 % (0-4.5); HEMATOCRIT 41.7 % (35.4-49); LYMPH % 16.5 % (8-40); MCHC 33.6 g/dl (32.0-35.9); MEAN CELL VOLUME 89.4 fl (80-96); MONO % 8.7 % (3.8-10.2); NEUT % 72.4 % (42.8-82.8); PLATELET COUNT 301 K/MM3 (134-434); RBC 4.67 M/mm3 (4.00-5.60); RDW 13.6 % (11.9-15.9); WHITE BLOOD COUNT 12.1 K/mm3 (4.0-10.0)
[2019-03-27 03:54] VITALS: TEMP 98.2
[2019-03-27 04:11] LABS: ALBUMIN 4.5 g/dl (3.4-5.0); BILIRUBIN,TOTAL 0.6 mg/dL (0.2-1); BLOOD UREA NITROGEN 24.5 mg/dL (7-18); CALCIUM 9.5 mg/dL (8.5-10.1); CREATININE 1.5 mg/dL (0.55-1.3); POTASSIUM 4.4 mmol/L (3.5-5.1); TOT PROT 8.4 g/dl (6.4-8.2)
--- NOTE | 2019-03-27 05:28 | PDOC ---
Attending Attestation - Resident Resident Name: Kinga Rodriguez - ED Attending Attestation I have performed the following: I have examined & evaluated the patient, The case was reviewed & discussed with the resident, I agree w/resident's findings & plan - HPI HPI: 03/27/19 05:24 Pt comes with abscess of the left hand. He got a spider bite at the care home where he was locked up until this week. Pt has redness of the entire palm and dorsal hand. - Physicial Exam PE: 03/27/19 05:24 Agree with resident exam. - Medical Decision Making 03/27/19 06:44 Pt was not admitted to hospitalist, because we have no hand surg icer air conditioning. Pt will be transferred to [facility].
[2019-03-27 07:05] VITALS: BP 105/64; PULSE 61
--- NOTE | 2019-03-27 11:23 | EKG ---
Test Reason : Blood Pressure : / mmHG Vent. Rate : 061 BPM Atrial Rate : 061 BPM P-R Int : 134 ms QRS Dur : 084 ms QT Int : 438 ms P-R-T Axes : 036 002 036 degrees QTc Int : 440 ms NORMAL SINUS RHYTHM NORMAL ECG WHEN COMPARED WITH ECG OF 12-JUN-2017 22:34, COMPARED TO EKG NO SIGNIFICANT CHANGE IS FOUND Confirmed by CLARITZA BANUELOS, BILLIE ([id number]) on 03/27/2019 11:23:01 AM Referred By: Confirmed By:BILLIE JERRY MD
== END 2019-03-27 07:40 | disposition short-term general hospital (02) ==
LOC: JER 23:06 → UNDOADMIN 03-27 04:33 → JERBED 03-27 04:33 → UNDODISIN 03-27 19:12
CPT/HCPCS: 36415; 71046-TC-FY; 73130-TC-LT-FY; 80053; 85025; 85610; 85730; 86850; 86900; 86901; 87040; 93005; 93010; 99284-25; J7030